=== PATIENT | female | born 1980 | race Caucasian/White ===

== ENCOUNTER → 2016-12-16 | Outpatient (REF) | payer OTHER ==
[2016-12-16 13:55] LABS: BASO % 0.2 % (0.0-1.0); EOS # 0.2 K/mm3 (0.0-0.50); EOS % 4.1 % (0.0-3.0); LARGE UNSTAINED CELL # 0.1 K/mm3 (0.0-0.4); LARGE UNSTAINED CELL % 1.5 % (0.0-4.0); LYMPH # 0.7 K/mm3 (1.5-4.5); MEAN CORPUSCULAR HEMOGLOBIN 30.5 pg (27.0-33.0); MEAN CORPUSCULAR HGB CONC 35.6 g/dl (32.0-36.5); MEAN CORPUSCULAR VOLUME 85.5 fl (80.0-96.0); MONO # 0.3 K/mm3 (0.0-0.8); MONO % 5.6 % (0.0-5.0); NEUTROPHILS # 3.6 K/mm3 (1.8-7.7); NEUTROPHILS % 74.6 % (36.0-66.0); PLATELET COUNT, AUTOMATED 267 k/mm3 (150-450); RED CELL DISTRIBUTION WIDTH 12.7 % (11.5-14.5); WHITE BLOOD COUNT 4.9 K/mm3 (4.0-10.0)
[2016-12-16 14:17] LABS: ALBUMIN 3.9 GM/DL (3.2-5.2); ALBUMIN/GLOBULIN RATIO 1.11 (1.00-1.93); ALKALINE PHOSPHATASE 75 U/L (45-117); ALT/SGPT 43 U/L (12-78); AST/SGOT 22 U/L (15-37); BILIRUBIN,DIRECT < 0.1 MG/DL (0.0-0.2); BILIRUBIN,TOTAL 0.4 MG/DL (0.2-1.0); CALCIUM LEVEL 9.1 MG/DL (8.5-10.1); CREATININE FOR GFR 0.88 MG/DL (0.55-1.02); GLOMERULAR FILTRATION RATE > 60.0 (>60); TOTAL PROTEIN 7.4 GM/DL (6.4-8.2)
[2016-12-21 00:19] LABS: VITAMIN D 1,25 DIHYDROXY 70.1 pg/mL (19.9-79.3)
== END ==
LOC: M LAB REF 13:27
PROVIDERS: ATTEND Internal Medicine Pulmonary Disease
DX: D86.0 Sarcoidosis of lung (principal)

== ENCOUNTER → 2017-04-01 | Outpatient (CLI) | payer OTHER ==
[~2017-04-01] MED LIST: ISOVUE-370 76% 100ML VIAL (Q9967) As Ordered ONE
--- NOTE | 2017-04-01 13:26 | REP ---
Hysterosalpingogram: Infusion of iodinated radiopaque contrast into the endometrial canal of the catheters accomplished by the stripe marker Dr. Robles but no. The endometrial canal has a normal appearance. There contrast opacifies fallopian tubes bilaterally. There is immediate intraperitoneal spill on the left. There is delayed intraperitoneal spill on the right. Impression: Normal hysterosalpingogram. Fluoroscopic exposure time is 41 seconds. Fluoroscopic images are performed with last image hold technology. These images require no additional radiation. Signed by Linus Talbert MD 04/01/2017 01:18 P
== END ==
LOC: M RADPRO 11:35
PROVIDERS: ATTEND Obstetrics & Gynecology
DX: N97.9 Female infertility, unspecified (principal)
CPT/HCPCS: 58340; 74740; Q9967

== ENCOUNTER → 2017-04-04 | Outpatient (CLI) | payer OTHER ==
--- NOTE | 2017-04-09 10:33 | SLEEPCENT ---
DATE OF STUDY: 04/04/2017 ORDERED BY: Bharat Govea DO Nocturnal polysomnography was performed for evaluation of sleep apnea syndrome symptoms in this patient with a history of excessive somnolence and nonrestorative sleep. 6 hours and 54 minutes of data were reviewed. There were 333 minutes of sleep identified. Sleep latency was prolonged at 56 minutes. Rapid eye movement (REM) latency was prolonged at 100 minutes. Sleep architecture showed some fragmentation. Progression was fairly good. There were 3 REM periods. Overall sleep efficiency was 81.7%. EKG showed a sinus rhythm with an average heart rate of 90 beats per minute. EEG showed normal waveforms for awake and sleep. There were 170 respiratory events identified of 10 seconds in duration or greater for an apnea-hypopnea index of 30.6. The events were primarily obstructive, not exclusive to sleep stage, more frequent but no exclusive to the supine posture. Arousals from respiratory events occurred 8.8 times per hour and oxygen desaturations were seen into the 70s. Remaining measures of sleep physiology were normal. IMPRESSION: Severe obstructive sleep apnea syndrome (G47.33), apnea-hypopnea index 30.6. RECOMMENDATION: The patient should be encouraged to return to the sleep disorder center for pressure therapy. In the interim, alcohol and sedative avoidance should be practiced and caution exercised during the operation of motor vehicles.
== END ==
LOC: M SLEEP 19:41
PROVIDERS: ATTEND Internal Medicine Pulmonary Disease
DX: D86.0 Sarcoidosis of lung (principal)

== ENCOUNTER → 2017-05-10 | Outpatient (CLI) | payer OTHER ==
--- NOTE | 2017-05-13 07:02 | SLEEPCENT ---
DATE OF PROCEDURE: 05/10/2017 ORDERED BY: Bharat Govea DO Nocturnal polysomnography was performed for the titration of pressure therapy in this patient with obstructive sleep apnea syndrome, apnea hypopnea index of 30.6. For testing, the patient was fit with a ResMed AirFit F20 full face mask of small size. 4 cm of water pressure were applied to the circuit and the lights were extinguished. 7 hours and 16 minutes of data were reviewed. There were 374 minutes of sleep identified. Sleep latency was prolonged at 18 minutes. Rapid eye movement (REM) latency was prolonged at 112 minutes. Sleep architecture showed good progression with 3-4 REM periods appreciated. Overall sleep efficiency was 87%. EKG showed a sinus rhythm with an average heart rate of 78 beats per minute. EEG showed normal waveforms for awake and sleep. Respiratory events were best palliated with CPAP at a pressure of +9. There was some limb activity early in the study. Only 1 train of events and limb movement arousal index was 5.1. IMPRESSION: Obstructive sleep apnea syndrome (G47.33). RECOMMENDATION: Nightly use of pressure therapy 9 cm of water.
== END ==
LOC: M SLEEP 19:47
PROVIDERS: ATTEND Internal Medicine Pulmonary Disease
DX: G47.33 Obstructive sleep apnea (adult) (pediatric) (principal)

== ENCOUNTER → 2017-07-28 | Outpatient (CLI) | payer OTHER | LOC: M RAD 16:22 | DX: Z12.31 Encounter for screening mammogram for malignant neoplasm of breast (principal); Z53.21 Procedure and treatment not carried out due to patient leaving prior to being seen by health care provider ==

== ENCOUNTER 2017-08-21 10:52 | Emergency (ER) | payer OTHER ==
[2017-08-21 13:29] LABS: BASO % 0.3 % (0.0-1.0); EOS # 0.2 10^3/uL (0.0-0.50); EOS % 3.1 % (0.0-3.0); HEMATOCRIT 39.8 % (36.0-47.0); HEMOGLOBIN 13.4 g/dl (12.0-16.0); IMMATURE GRANULOCYTE % 0.3 % (0-0); LYMPH # 0.9 10^3/uL (1.5-4.5); LYMPH % 13.4 % (24.0-44.0); MEAN CORPUSCULAR HEMOGLOBIN 29.3 pg (27.0-33.0); MEAN CORPUSCULAR HGB CONC 33.7 g/dl (32.0-36.5); MEAN CORPUSCULAR VOLUME 86.9 fl (80.0-96.0); MONO # 0.5 10^3/uL (0.0-0.8); MONO % 7.4 % (0.0-5.0); NEUTROPHILS # 4.9 10^3/uL (1.8-7.7); NEUTROPHILS % 75.5 % (36.0-66.0); PLATELET COUNT, AUTOMATED 257 10^3/uL (150-450); RED BLOOD COUNT 4.58 10^6/uL (4.00-5.40); RED CELL DISTRIBUTION WIDTH 12.6 % (11.5-14.5); WHITE BLOOD COUNT 6.5 10^3/uL (4.0-10.0)
[2017-08-21 14:07] LABS: HCG, SERUM QUANTITATIVE 12586 MIU/ML
[2017-08-21 16:27] LABS: CHLAMYDIA DNA AMPLIFICATION NEGATIVE (NEGATIVE); GC DNA AMPLIFICATION NEGATIVE (NEGATIVE)
== END 2017-08-21 15:25 | disposition home or self-care (01) ==
LOC: M ED 10:52
DX: O20.9 Hemorrhage in early pregnancy, unspecified (principal); R03.0 Elevated blood-pressure reading, without diagnosis of hypertension; O99.280 Endocrine, nutritional and metabolic diseases complicating pregnancy, unspecified trimester; E03.9 Hypothyroidism, unspecified; O99.350 Diseases of the nervous system complicating pregnancy, unspecified trimester; G47.33 Obstructive sleep apnea (adult) (pediatric); O99.119 Other diseases of the blood and blood-forming organs and certain disorders involving the immune mechanism complicating pregnancy, unspecified trimester; D86.0 Sarcoidosis of lung; Z79.890 Hormone replacement therapy; Z3A.00 Weeks of gestation of pregnancy not specified
CPT/HCPCS: 76801

== ENCOUNTER → 2017-10-03 | Outpatient (CLI) | payer OTHER | LOC: M RAD 14:06 | DX: Z12.31 Encounter for screening mammogram for malignant neoplasm of breast (principal); Z80.3 Family history of malignant neoplasm of breast | CPT/HCPCS: 77067 ==

== ENCOUNTER → 2017-11-28 | Outpatient (CLI) | payer OTHER ==
[2017-11-28 15:22] LABS: BASO % 0.3 % (0.0-1.0); EOS # 0.3 10^3/uL (0.0-0.50); EOS % 3.4 % (0.0-3.0); HEMATOCRIT 40.6 % (36.0-47.0); HEMOGLOBIN 13.8 g/dl (12.0-15.5); IMMATURE GRANULOCYTE % 0.3 % (0-3.0); LYMPH % 13.5 % (24.0-44.0); MEAN CORPUSCULAR HEMOGLOBIN 29.6 pg (27.0-33.0); MEAN CORPUSCULAR VOLUME 86.9 fl (80.0-96.0); MONO # 0.6 10^3/uL (0.0-0.8); MONO % 8.6 % (0.0-5.0); NEUTROPHILS # 5.4 10^3/uL (1.8-7.7); NEUTROPHILS % 73.9 % (36.0-66.0); PLATELET COUNT, AUTOMATED 248 10^3/uL (150-450); RED BLOOD COUNT 4.67 10^6/uL (4.00-5.40); RED CELL DISTRIBUTION WIDTH 12.9 % (11.5-14.5); WHITE BLOOD COUNT 7.3 10^3/uL (4.0-10.0)
[2017-11-28 15:47] LABS: ALBUMIN 3.9 GM/DL (3.2-5.2); ALBUMIN/GLOBULIN RATIO 0.98 (1.00-1.93); ALKALINE PHOSPHATASE 77 U/L (45-117); ALT/SGPT 51 U/L (12-78); ANION GAP 7 MEQ/L (8-16); AST/SGOT 26 U/L (7-37); BILIRUBIN,TOTAL 0.4 MG/DL (0.2-1.0); BLOOD UREA NITROGEN 9 MG/DL (7-18); CALCIUM LEVEL 9.2 MG/DL (8.5-10.1); CARBON DIOXIDE LEVEL 25 MEQ/L (21-32); CHLORIDE LEVEL 107 MEQ/L (98-107); CREATININE FOR GFR 0.81 MG/DL (0.55-1.30); GLOMERULAR FILTRATION RATE > 60.0 (>60); GLUCOSE, FASTING 78 MG/DL (70-100); HCG, SERUM QUANTITATIVE < 1.0 MIU/ML; POTASSIUM SERUM 4.5 MEQ/L (3.5-5.1); SODIUM LEVEL 139 MEQ/L (136-145); TOTAL PROTEIN 7.9 GM/DL (6.4-8.2)
== END ==
LOC: M WUC 13:54
DX: R10.814 Left lower quadrant abdominal tenderness (principal)

== ENCOUNTER 2018-01-11 11:09 | Emergency (ER) | payer OTHER ==
[2018-01-11 11:52] LABS: KETONE, URINE AUTO RFX NEGATIVE (NEGATIVE); LEUKOCYTE ESTERASE UR AUTO RFX NEGATIVE (NEGATIVE); MUCUS, URINE RFX SMALL (NEGATIVE); NITRITE, URINE AUTO RFX NEGATIVE (NEGATIVE); RBC, URINE AUTO RFX 47 /HPF (0-3); SPECIFIC GRAVITY UR AUTO RFX 1.018 (1.002-1.035); SQUAM EPITHELIAL CELL UR AURFX 29 /HPF (0-6); WBC, URINE AUTO RFX 6 /HPF (0-3)
[2018-01-11] MEDS: NS 1,000 ML IV (14:15)
[2018-01-11] MEDS: KETOROLAC 30 MG/ML VIAL (J1885) IV (15:31)
[2018-01-11 15:34] LABS: BASO % 0.2 % (0.0-1.0); EOS # 0.2 10^3/uL (0.0-0.50); EOS % 2.3 % (0.0-3.0); HEMATOCRIT 41.2 % (36.0-47.0); HEMOGLOBIN 14.4 g/dl (12.0-15.5); IMMATURE GRANULOCYTE % 0.2 % (0-3.0); LYMPH # 0.9 10^3/uL (1.5-4.5); LYMPH % 10.5 % (24.0-44.0); MEAN CORPUSCULAR HEMOGLOBIN 29.5 pg (27.0-33.0); MEAN CORPUSCULAR VOLUME 84.4 fl (80.0-96.0); MONO # 0.5 10^3/uL (0.0-0.8); MONO % 6.2 % (0.0-5.0); NEUTROPHILS # 6.5 10^3/uL (1.8-7.7); NEUTROPHILS % 80.6 % (36.0-66.0); PLATELET COUNT, AUTOMATED 271 10^3/uL (150-450); RED BLOOD COUNT 4.88 10^6/uL (4.00-5.40); WHITE BLOOD COUNT 8.1 10^3/uL (4.0-10.0)
[2018-01-11 16:16] LABS: ANION GAP 10 MEQ/L (8-16); BLOOD UREA NITROGEN 15 MG/DL (7-18); CALCIUM LEVEL 10.3 MG/DL (8.5-10.1); CARBON DIOXIDE LEVEL 21 MEQ/L (21-32); CHLORIDE LEVEL 107 MEQ/L (98-107); CREATININE FOR GFR 1.21 MG/DL (0.55-1.30); GLOMERULAR FILTRATION RATE 53.9 (>60); GLUCOSE, FASTING 90 MG/DL (70-100); POTASSIUM SERUM 4.6 MEQ/L (3.5-5.1); SODIUM LEVEL 138 MEQ/L (136-145)
[2018-01-11] MEDS: TAMSULOSIN 0.4 MG CAP PO (16:37)
== END 2018-01-11 16:50 | disposition home or self-care (01) ==
LOC: M ED 11:09
DX: N20.1 Calculus of ureter (principal); N30.01 Acute cystitis with hematuria; N20.0 Calculus of kidney; N13.30 Unspecified hydronephrosis; K76.0 Fatty (change of) liver, not elsewhere classified; G47.30 Sleep apnea, unspecified; Z79.890 Hormone replacement therapy; Z87.442 Personal history of urinary calculi; Z98.890 Other specified postprocedural states
CPT/HCPCS: J1885